=== PATIENT | female | born 1960 | race Caucasian/White ===

== ENCOUNTER → 2023-07-12 11:56 | Outpatient (REF) | payer OTHER, SELFPAY | LOC: HWWDC 11:56 | PROVIDERS: ATTENDING PHYSICIAN Family Medicine; REFERRING PHYSICIAN Obstetrics & Gynecology | DX: Z12.31 Encounter for screening mammogram for malignant neoplasm of breast (principal) | CPT/HCPCS: 77063; 77067 ==

== ENCOUNTER → 2024-10-26 15:21 | Outpatient (REF) | payer OTHER, SELFPAY | LOC: HWWDC 15:21 | PROVIDERS: ATTENDING PHYSICIAN Family Medicine | DX: Z12.31 Encounter for screening mammogram for malignant neoplasm of breast (principal) | CPT/HCPCS: 77063; 77067 ==